=== PATIENT | female | born 1955 | race Caucasian/White ===

== ENCOUNTER → 2022-02-16 15:13 | Outpatient (CLI) | payer MEDICARE, OTHER, SELFPAY ==
--- NOTE | 2022-02-16 15:16 | DI.RAD.S_ITS ---
PROCEDURE: XR KNEE RT 3V INDICATIONS: bilateral knee and hip pain TECHNIQUE: 3 views of the knee were acquired. COMPARISON: None. FINDINGS: Bones: No fractures or dislocations. No suspicious bony lesions. Mild osteoarthritic degenerative changes noted in all 3 compartments of the right knee. Soft tissues: No joint effusion. No suspicious soft tissue calcifications. IMPRESSION: Mild right knee tricompartmental osteoarthritis. Dictated by: Queta Ram MD, PhD on 02/16/2022 at 17:20 Approved by: Queta Ram MD, PhD on 02/16/2022 at 17:20
--- NOTE | 2022-02-16 15:16 | DI.RAD.S_ITS ---
PROCEDURE: XR KNEE LT 3V INDICATIONS: bilateral knee and hip pain TECHNIQUE: 3 views of the left knee were acquired. COMPARISON: None. FINDINGS: Bones: No fractures or dislocations. No suspicious bony lesions. Mild osteoarthritic degenerative changes noted in all 3 compartments of the left knee. Soft tissues: No joint effusion. No suspicious soft tissue calcifications. IMPRESSION: Mild left knee tricompartmental osteoarthritis. Dictated by: Queta Ram MD, PhD on 02/16/2022 at 17:19 Approved by: Queta Ram MD, PhD on 02/16/2022 at 17:20
== END ==
PROVIDERS: PCP Family Medicine; Referring Provider Family Medicine; Visit Provider Family Medicine
DX: M17.0 Bilateral primary osteoarthritis of knee (principal); M25.561 Pain in right knee; M25.562 Pain in left knee; M25.551 Pain in right hip; M25.552 Pain in left hip; M54.40 Lumbago with sciatica, unspecified side; G89.29 Other chronic pain
CPT/HCPCS: 73562

== ENCOUNTER → 2022-02-23 10:08 | Outpatient (CLI) | payer MEDICARE, OTHER, SELFPAY ==
[2022-02-23 12:01] LABS: Alanine Aminotransferase 21 IU/L (<35); Albumin 4.4 g/dL (3.5-5.0); Albumin Globulin Ratio 1.4 (1.0-2.8); Alkaline Phosphatase 75 U/L (38-126); Aspartate Aminotransferase 34 IU/L (14-36); BUN Creatinine Ratio 16.9 (6-22); Bilirubin Total 0.8 mg/dL (0.2-1.3); Blood Urea Nitrogen 13 mg/dL (7-17); Calcium 9.1 mg/dL (8.4-10.2); Carbon Dioxide 28 mmol/L (22-32); Chloride 104 mmol/L (98-107); Estimated Glomerular Filt Rate > 60 mL/min (>60); Globulin 3.2 g/dL (1.7-4.1); Glucose 81 mg/dL (80-110); HEMOLYSIS < 15 (0-50); Potassium 4.4 mmol/L (3.4-5.1); Sodium 140 mmol/L (137-145); Total Protein 7.6 g/dL (6.3-8.2)
== END ==
PROVIDERS: PCP Family Medicine; Referring Provider Family Medicine; Visit Provider Family Medicine
DX: E03.9 Hypothyroidism, unspecified (principal); E55.9 Vitamin D deficiency, unspecified; F41.9 Anxiety disorder, unspecified; G89.29 Other chronic pain; M54.40 Lumbago with sciatica, unspecified side
CPT/HCPCS: 36415; 80053

== ENCOUNTER → 2022-02-25 12:11 | Outpatient (CLI) | payer MEDICARE, OTHER, SELFPAY ==
--- NOTE | 2022-02-25 12:15 | DI.CT.S_ITS ---
PROCEDURE: CT CHEST W CON INDICATIONS: tree-in-bud findings and chronic cough TECHNIQUE: After the administration of intravenous contrast, 5 mm thick sections acquired from the pulmonary apices to the posterior costophrenic angles. 1 mm axial lung, 5 mm thick coronal and sagittal reformats and 7 mm axial MIP were acquired. For radiation dose reduction, the following was used: automated exposure control, adjustment of mA and/or kV according to patient size. COMPARISON: None. FINDINGS: Image quality: Excellent. Lungs and pleura: Mild bronchiectasis and mild poorly defined opacity can be seen involving the inferior lingula and the right middle lobe. Minimal subpleural fibrotic change can be seen. Mediastinum: Heart size is normal. No pericardial effusion. No mediastinal or hilar adenopathy by size criteria. Thoracic aorta and central pulmonary arteries are normal in size. Esophagus is normal in caliber. No hiatal hernia. Bones and chest wall: No suspicious bony lesions. No vertebral body compression fractures. No axillary or supraclavicular adenopathy by size criteria. Thyroid gland demonstrates no significant abnormality. A left mammoplasty implant can be seen. A collapsed right mammoplasty implant can be seen. Abdomen: Simple appearing water density liver cysts are seen. There is thickening of the left adrenal gland, yet without a peggy, focal nodule. The visualized portions of the upper abdominal structures are otherwise unremarkable for imaging technique. IMPRESSION: Within the inferior lingula and within the right middle lobe, there is mild bronchiectasis seen, with mild associated poorly defined opacity. The findings are nonspecific, yet are most commonly seen in patients with chronic infection. Incidental note is made of: Left mammoplasty implant Collapsed right mammoplasty implant Simple appearing liver cysts Thickening of the left adrenal gland Dictated by: Mike Segovia M.D. on 02/25/2022 at 14:59 Approved by: Mike Segovia M.D. on 02/25/2022 at 15:02
== END ==
PROVIDERS: PCP Family Medicine; Referring Provider Family Medicine; Visit Provider Family Medicine
DX: J47.9 Bronchiectasis, uncomplicated (principal); J84.9 Interstitial pulmonary disease, unspecified; R05.3 Chronic cough; T85.41XA Breakdown (mechanical) of breast prosthesis and implant, initial encounter; K76.89 Other specified diseases of liver
CPT/HCPCS: 71260

== ENCOUNTER → 2022-02-27 11:06 | Outpatient (CLI) | payer MEDICARE, OTHER, SELFPAY ==
[2022-02-27 11:39] LABS: Add Manual Diff / Slide Review NO; Basophils Absolute Auto 100 /uL (0-100); Basophils Percent Auto 1.2 % (0-2); Eosinophils Absolute Auto 100 /uL (0-450); Eosinophils Percent Auto 1.3 % (2-4); Hematocrit 38.3 % (36-46); Hemoglobin 12.7 g/dL (12.0-16.0); Lymphocytes Absolute Auto 1100 /uL (1100-4500); Lymphocytes Percent Auto 23.5 % (25-40); Mean Corpuscular HGB Conc 33.2 % (30-36); Mean Corpuscular Hemoglobin 29.3 PG (26-34); Mean Corpuscular Volume 88.4 fL (80-100); Monocytes Absolute Auto 400 /uL (0-900); Neutrophils Absolute Auto 3100 /uL (1500-7000); Platelet Count 301 X10^3/uL (150-400); Red Blood Cell Count 4.34 X10^6/uL (4.0-5.2); Red Cell Distribution Width 15.5 % (11.6-14.8); White Blood Cell Count 4.7 X10^3/uL (4.5-11.0)
[2022-02-27 12:32] LABS: Vitamin D 25 Hydroxy (D3) 66.4 ng/mL (30.0-100.0)
[2022-02-27 12:33] LABS: Free T3, Triiodothyronine Free 3.24 pg/mL (2.77-5.27); Free T4, Direct Thyroxine 1.62 ng/dL (0.78-2.19)
[2022-02-27 12:47] LABS: TSH w/ Reflex to FT4 1.93 uIU/mL (0.47-4.68)
== END ==
PROVIDERS: PCP Family Medicine; Referring Provider Family Medicine; Visit Provider Family Medicine
DX: E03.9 Hypothyroidism, unspecified (principal); E55.9 Vitamin D deficiency, unspecified; F41.9 Anxiety disorder, unspecified; G89.29 Other chronic pain; M54.50 Low back pain, unspecified
CPT/HCPCS: 36415; 82306; 84439; 84443; 84481; 85025

== ENCOUNTER → 2022-05-05 07:21 | Outpatient (CLI) | payer MEDICARE, OTHER, SELFPAY ==
[2022-05-05 09:06] LABS: Cholesterol 276 mg/dL (140-199); HDL Cholesterol 76 mg/dL (40-60); LDL Cholesterol Calculated 188 mg/dL (<100); Triglycerides 60 mg/dL (35-150)
[2022-05-06 06:43] LABS: Alpha 1 Anti Trypsin 83 mg/dL (101-187)
== END ==
PROVIDERS: PCP Family Medicine; Referring Provider Family Medicine; Visit Provider Family Medicine
DX: E03.9 Hypothyroidism, unspecified (principal); E55.9 Vitamin D deficiency, unspecified; F41.9 Anxiety disorder, unspecified; G89.29 Other chronic pain; M54.40 Lumbago with sciatica, unspecified side; J47.9 Bronchiectasis, uncomplicated; M25.559 Pain in unspecified hip; M25.569 Pain in unspecified knee
CPT/HCPCS: 36415; 80061; 82103

== ENCOUNTER → 2022-05-13 09:09 | Outpatient (CLI) | payer MEDICARE, OTHER, SELFPAY ==
--- NOTE | 2022-05-13 09:11 | DI.RAD.S_ITS ---
PROCEDURE: XR LUMBAR SPINE 2-3V INDICATIONS: chronic low back with bilateral radiculopathy TECHNIQUE: 3 views of the lumbar spine were acquired. COMPARISON: None. FINDINGS: Bones: 5 [id number] vertebrae are present. Mild right convexity curvature of the thoracolumbar spine centered at L2-L3. 3 mm anterolisthesis L4 on L5. Lumbar disc heights are largely maintained. Facet degenerative changes present at L4-5 and L5-S1, likely also L3-L4. No vertebral body compression fractures. No suspicious bony lesions. Soft tissues: Overlying bowel gas pattern is normal. No suspicious soft tissue calcifications. IMPRESSION: Mild degenerative changes of the lumbar spine. Dictated by: Donis Maurice M.D. on 05/13/2022 at 16:21 Approved by: Donis Maurice M.D. on 05/13/2022 at 16:25
== END ==
PROVIDERS: PCP Family Medicine; Referring Provider Family Medicine; Visit Provider Family Medicine
DX: M54.50 Low back pain, unspecified (principal); G89.29 Other chronic pain; M54.16 Radiculopathy, lumbar region
CPT/HCPCS: 72100

== ENCOUNTER → 2022-05-19 12:01 | Outpatient (CLI) | payer MEDICARE, OTHER, SELFPAY ==
--- NOTE | 2022-05-19 12:02 | DI.MRI.S_ITS ---
PROCEDURE: MR LUMBAR SPINE WO CON INDICATIONS: chronic low back pain with bilateral radicular symptoms TECHNIQUE: Noncontrast sagittal T1 spin echo and T2 fast echo, sagittal STIR, and T2 fast spin echo through the lumbar spine. In cases with scoliosis, additional coronal T2 fast spin echo may be performed. COMPARISON: None. FINDINGS: Image quality: Excellent. Alignment and Curvature: There is normal bony alignment. Bone Marrow: Marrow is of normal overall signal. No acute vertebral body compression fractures. Spinal Cord: Conus medullaris terminates at the L1 level. Visualized cord demonstrates normal signal and size. Paraspinous Soft Tissues: No paravertebral masses. T12-L1: Normal appearance. L1-L2 and L2-3: Normal appearance. L3-4: Disc height is preserved. Circumferential disc bulge and hypertrophic facet joints results in mild central stenosis. No foraminal stenosis L4-5: Disc height is preserved. Circumferential disc bulge and hypertrophic facet joints results in mild to moderate central stenosis. Mild bilateral foraminal stenosis. L5-S1: Normal appearance. IMPRESSION: 1. Degenerative disc disease and arthropathy results in [id number] central stenosis at L4-5 Approved by: Napoleon Nice M.D. on 05/19/2022 at 13:59
== END ==
PROVIDERS: PCP Family Medicine; Referring Provider Family Medicine; Visit Provider Family Medicine
DX: M51.16 Intervertebral disc disorders with radiculopathy, lumbar region (principal); G89.29 Other chronic pain; M48.061 Spinal stenosis, lumbar region without neurogenic claudication
CPT/HCPCS: 72148

== ENCOUNTER → 2022-06-08 14:12 | Outpatient (CLI) | payer MEDICARE, OTHER, SELFPAY ==
--- NOTE | 2022-06-08 | DI.MG.S_ITS ---
BILATERAL DIGITAL SCREENING MAMMOGRAM 3D/2D WITH CAD WITH AUGMENTATION: 06/08/2022 CLINICAL: Patient presents for routine screening. S/P bilateral augmentation. Comparison is made to exam dated: 07/17/2018 mammogram - outside location. Both breasts are heterogeneously dense, which may obscure small masses (category c / 51-75% glandular tissue). Current study was also evaluated with a Computer Aided Detection (CAD) system. Right breast implant is present. Left breast implant is intact. No significant masses, calcifications, or other findings are seen in either breast. There has been no significant interval change. IMPRESSION: BENIGN There is no mammographic evidence of malignancy. A 1 year screening mammogram is recommended. Based on the Tyrer Cuzick model (a risk assessment model) the patient's lifetime risk is 10.0% and her 10 year risk is 5.3%. According to the ACR, ACS, and NCCN guidelines, an annual breast MRI exam along with mammogram is recommended if the patient's lifetime risk is 20% or greater. This exam was interpreted at Station ID: [id number]. NOTE: For mammograms, a report in lay terms will be sent to the patient. Approximately 15% of breast malignancies will not be visualized mammographically. In the management of a palpable breast mass, a negative mammogram must not discourage biopsy of a clinically suspicious lesion. Electronically Signed By: George tai/boni:06/08/2022 14:55:28 letter sent: Normal Exam ACR BI-RADS Category 2: Benign Finding(s) 3342F
== END ==
PROVIDERS: PCP Family Medicine; Referring Provider Family Medicine; Visit Provider Family Medicine
DX: Z12.31 Encounter for screening mammogram for malignant neoplasm of breast (principal); Z98.82 Breast implant status
CPT/HCPCS: 77063; 77067

== ENCOUNTER → 2022-12-09 13:06 | Outpatient (CLI) | payer MEDICARE, OTHER, SELFPAY ==
[2022-12-14 21:24] LABS: 18 kD IgG Band Absent (.); 23 kD IgG Band Absent (.); 28 kD IgG Band Absent (.); 30 kD IgG Band Absent (.); 39 kD IgG Band Absent (.); 41 kD IgG Bands Present (.); 45 kD IgG Band Absent (.); 58 kD IgG Band Present (.); 66 kD IgG Band Absent (.); IgG P93 AB Absent (.); IgM P23 AB Absent (.); IgM P39 AB Absent (.); IgM P41 AB Absent (.); Lyme IgG Line Blot Interpretat Negative (.); Lyme IgM Line Blot Interpretat Negative (.)
== END ==
PROVIDERS: PCP Family Medicine; Referring Provider Family Medicine; Visit Provider Family Medicine
DX: A69.20 Lyme disease, unspecified (principal); G62.9 Polyneuropathy, unspecified
CPT/HCPCS: 36415; 86617

== ENCOUNTER → 2023-09-09 13:15 | Outpatient (CLI) | payer MEDICARE, OTHER, SELFPAY ==
[2023-09-12 16:47] LABS: Fecal Immunochemical Test Negative (Negative)
== END ==
PROVIDERS: PCP Family Medicine; Referring Provider Family Medicine; Visit Provider Family Medicine
DX: Z12.11 Encounter for screening for malignant neoplasm of colon (principal)
CPT/HCPCS: 82274

== ENCOUNTER → 2023-11-15 06:56 | Outpatient (CLI) | payer MEDICARE, OTHER, SELFPAY ==
[2023-11-15 09:18] LABS: Alanine Aminotransferase 20 IU/L (<35); Albumin 3.8 g/dL (3.5-5.0); Albumin Globulin Ratio 1.2 (1.0-2.8); Alkaline Phosphatase 71 U/L (38-126); Aspartate Aminotransferase 27 IU/L (14-36); BUN Creatinine Ratio 18.7 (6-22); Bilirubin Total 0.9 mg/dL (0.2-1.3); Blood Urea Nitrogen 14 mg/dL (7-17); Calcium 9.2 mg/dL (8.4-10.2); Carbon Dioxide 30 mmol/L (22-32); Chloride 109 mmol/L (98-107); Cholesterol 247 mg/dL (140-199); Estimated Glomerular Filt Rate > 60 mL/min (>60); Globulin 3.1 g/dL (1.7-4.1); Glucose 86 mg/dL (80-110); HDL Cholesterol 80 mg/dL (40-60); HEMOLYSIS < 15 (0-50); LDL Cholesterol Calculated 151 mg/dL (<100); Potassium 4.4 mmol/L (3.4-5.1); Sodium 141 mmol/L (137-145); Total Protein 6.9 g/dL (6.3-8.2); Triglycerides 78 mg/dL (35-150)
[2023-11-16 08:10] LABS: Apolipoprotein B 108 mg/dL (<90)
== END ==
PROVIDERS: PCP Family Medicine; Referring Provider Family Medicine; Visit Provider Family Medicine
DX: E78.49 Other hyperlipidemia (principal); E03.9 Hypothyroidism, unspecified
CPT/HCPCS: 36415; 80053; 80061; 82172; 83695

== ENCOUNTER → 2023-11-22 09:46 | Outpatient (CLI) | payer MEDICARE, OTHER, SELFPAY ==
[2023-11-22 11:30] LABS: TSH w/ Reflex to FT4 < 0.02 uIU/mL (0.47-4.68)
[2023-11-22 12:08] LABS: Free T4, Direct Thyroxine 2.38 ng/dL (0.78-2.19)
== END ==
PROVIDERS: PCP Family Medicine; Referring Provider Family Medicine; Visit Provider Family Medicine
DX: E78.49 Other hyperlipidemia (principal); E03.9 Hypothyroidism, unspecified; E88.01 Alpha-1-antitrypsin deficiency; Z12.11 Encounter for screening for malignant neoplasm of colon
CPT/HCPCS: 36415; 84439; 84443

== ENCOUNTER → 2023-12-24 08:56 | Outpatient (CLI) | payer MEDICARE, OTHER, SELFPAY ==
[2023-12-24 09:50] LABS: Add Manual Diff / Slide Review NO; Basophils Absolute Auto 100 /uL (0-100); Eosinophils Absolute Auto 100 /uL (0-450); Eosinophils Percent Auto 1.5 % (2-4); Hematocrit 39.4 % (36-46); Lymphocytes Absolute Auto 900 /uL (1100-4500); Lymphocytes Percent Auto 17.6 % (25-40); Mean Corpuscular HGB Conc 32.9 % (30-36); Mean Corpuscular Hemoglobin 28.4 PG (26-34); Mean Corpuscular Volume 86.5 fL (80-100); Monocytes Absolute Auto 400 /uL (0-900); Neutrophils Absolute Auto 3700 /uL (1500-7000); Neutrophils Percent Auto 71.9 % (50-75); Platelet Count 283 X10^3/uL (150-400); Red Blood Cell Count 4.56 X10^6/uL (4.0-5.2); Red Cell Distribution Width 14.7 % (11.6-14.8); White Blood Cell Count 5.2 X10^3/uL (4.5-11.0)
[2023-12-24 10:07] LABS: Erythrocyte Sedimentation Rate 18 MM/HR (0-20)
[2023-12-24 10:22] LABS: Alanine Aminotransferase 26 IU/L (<35); Albumin 4.1 g/dL (3.5-5.0); Albumin Globulin Ratio 1.5 (1.0-2.8); Alkaline Phosphatase 74 U/L (38-126); Aspartate Aminotransferase 32 IU/L (14-36); BUN Creatinine Ratio 20.3 (6-22); Blood Urea Nitrogen 16 mg/dL (7-17); C-Reactive Protein Quant < 0.5 mg/dL (<1.0); Calcium 9.5 mg/dL (8.4-10.2); Carbon Dioxide 28 mmol/L (22-32); Chloride 107 mmol/L (98-107); Estimated Glomerular Filt Rate > 60 mL/min (>60); Globulin 2.8 g/dL (1.7-4.1); Glucose 86 mg/dL (80-110); HEMOLYSIS < 15 (0-50); Potassium 4.6 mmol/L (3.4-5.1); Sodium 139 mmol/L (137-145); Total Protein 6.9 g/dL (6.3-8.2)
[2023-12-24 10:30] LABS: Free T3, Triiodothyronine Free 4.92 pg/mL (2.77-5.27); Free T4, Direct Thyroxine 1.85 ng/dL (0.78-2.19)
[2023-12-27 19:07] LABS: CCP Antibodies IgG/IgA 0 units (0-19)
== END ==
PROVIDERS: PCP Family Medicine; Referring Provider Family Medicine; Visit Provider Family Medicine
DX: E03.9 Hypothyroidism, unspecified (principal); R53.83 Other fatigue; M25.50 Pain in unspecified joint
CPT/HCPCS: 36415; 80053; 84439; 84443; 84481; 85025; 85651; 86140; 86200

== ENCOUNTER → 2024-02-08 06:56 | Outpatient (CLI) | payer MEDICARE, OTHER, SELFPAY ==
[2024-02-08 08:20] LABS: Add Manual Diff / Slide Review NO; Basophils Absolute Auto 0 /uL (0-100); Basophils Percent Auto 0.9 % (0-2); Eosinophils Absolute Auto 100 /uL (0-450); Eosinophils Percent Auto 1.3 % (2-4); Hematocrit 38.9 % (36-46); Hemoglobin 13.1 g/dL (12.0-16.0); Lymphocytes Absolute Auto 800 /uL (1100-4500); Lymphocytes Percent Auto 14.7 % (25-40); Mean Corpuscular HGB Conc 33.6 % (30-36); Mean Corpuscular Volume 86.3 fL (80-100); Monocytes Absolute Auto 400 /uL (0-900); Monocytes Percent Auto 7.9 % (3-14); Neutrophils Absolute Auto 4100 /uL (1500-7000); Neutrophils Percent Auto 75.2 % (50-75); Platelet Count 265 X10^3/uL (150-400); Red Blood Cell Count 4.51 X10^6/uL (4.0-5.2); Red Cell Distribution Width 14.6 % (11.6-14.8); White Blood Cell Count 5.5 X10^3/uL (4.5-11.0)
[2024-02-08 08:57] LABS: Free T3, Triiodothyronine Free 4.15 pg/mL (2.77-5.27)
[2024-02-08 08:58] LABS: Alanine Aminotransferase 37 IU/L (<35); Albumin 4.2 g/dL (3.5-5.0); Albumin Globulin Ratio 1.4 (1.0-2.8); Alkaline Phosphatase 73 U/L (38-126); Aspartate Aminotransferase 56 IU/L (14-36); BUN Creatinine Ratio 27.9 (6-22); Bilirubin Total 1.3 mg/dL (0.2-1.3); Blood Urea Nitrogen 17 mg/dL (7-17); C-Reactive Protein Quant < 0.5 mg/dL (<1.0); Calcium 9.1 mg/dL (8.4-10.2); Carbon Dioxide 27 mmol/L (22-32); Chloride 108 mmol/L (98-107); Cholesterol 168 mg/dL (140-199); Estimated Glomerular Filt Rate > 60 mL/min (>60); Globulin 2.9 g/dL (1.7-4.1); Glucose 91 mg/dL (80-110); HDL Cholesterol 100 mg/dL (40-60); LDL Cholesterol Calculated 55 mg/dL (<100); Sodium 138 mmol/L (137-145); Total Protein 7.1 g/dL (6.3-8.2); Triglycerides 64 mg/dL (35-150)
[2024-02-08 09:01] LABS: HEMOLYSIS 102 (0-50)
[2024-02-08 09:07] LABS: Erythrocyte Sedimentation Rate 20 MM/HR (0-20)
[2024-02-08 09:11] LABS: TSH w/ Reflex to FT4 0.13 uIU/mL (0.47-4.68)
[2024-02-08 09:33] LABS: Vitamin B12 Reflex MMA if <400 748 pg/mL (239-931)
[2024-02-08 09:36] LABS: Free T4, Direct Thyroxine 1.76 ng/dL (0.78-2.19)
[2024-02-09 06:08] LABS: Apolipoprotein B 63 mg/dL (<90)
== END ==
PROVIDERS: PCP Family Medicine; Referring Provider Family Medicine; Visit Provider Family Medicine
DX: E78.49 Other hyperlipidemia (principal); E03.9 Hypothyroidism, unspecified; E88.01 Alpha-1-antitrypsin deficiency; Z12.11 Encounter for screening for malignant neoplasm of colon; R53.83 Other fatigue; M25.50 Pain in unspecified joint
CPT/HCPCS: 36415; 80053; 80061; 82172; 82607; 84439; 84443; 84481; 85025; 85651; 86140

== ENCOUNTER → 2024-05-02 07:16 | Outpatient (CLI) | payer MEDICARE, OTHER, SELFPAY ==
[2024-05-02 08:41] LABS: Alanine Aminotransferase 26 IU/L (<35); Albumin Globulin Ratio 1.4 (1.0-2.8); Alkaline Phosphatase 87 U/L (38-126); Aspartate Aminotransferase 31 IU/L (14-36); BUN Creatinine Ratio 24.7 (6-22); Blood Urea Nitrogen 19 mg/dL (7-17); Calcium 9.5 mg/dL (8.4-10.2); Carbon Dioxide 27 mmol/L (22-32); Chloride 107 mmol/L (98-107); Cholesterol 251 mg/dL (140-199); Estimated Glomerular Filt Rate > 60 mL/min (>60); Globulin 2.8 g/dL (1.7-4.1); Glucose 96 mg/dL (80-110); HDL Cholesterol 91 mg/dL (40-60); HEMOLYSIS < 15 (0-50); LDL Cholesterol Calculated 144 mg/dL (<100); Potassium 4.7 mmol/L (3.4-5.1); Sodium 140 mmol/L (137-145); Total Protein 6.8 g/dL (6.3-8.2); Triglycerides 79 mg/dL (35-150)
[2024-05-02 08:52] LABS: Free T3, Triiodothyronine Free 2.77 pg/mL (2.77-5.27); Free T4, Direct Thyroxine 1.41 ng/dL (0.78-2.19)
[2024-05-02 09:05] LABS: Thyroid Stimulating Hormone 0.219 uIU/mL (0.47-4.68)
[2024-05-03 05:30] LABS: Apolipoprotein B 114 mg/dL (<90)
== END ==
PROVIDERS: PCP Family Medicine; Referring Provider Family Medicine; Visit Provider Family Medicine
DX: E78.49 Other hyperlipidemia (principal); E03.9 Hypothyroidism, unspecified; F41.9 Anxiety disorder, unspecified
CPT/HCPCS: 36415; 80053; 80061; 82172; 84439; 84443; 84481

== ENCOUNTER → 2024-07-06 08:10 | Outpatient (CLI) | payer MEDICARE, OTHER, SELFPAY ==
--- NOTE | 2024-07-06 | DI.MG.S_ITS ---
BILATERAL DIGITAL SCREENING MAMMOGRAM 3D/2D WITH CAD WITH AUGMENTATION: 07/06/2024 CLINICAL: Routine screening. Comparison is made to exams dated: 06/08/2022 mammogram - [facility] and 07/17/2018 mammogram - outside location. The breasts are heterogeneously dense, which may obscure small masses (category c / 51-75% glandular tissue). Current study was also evaluated with a Computer Aided Detection (CAD) system. Right breast implant is present. Left breast implant is intact. No significant masses, calcifications, or other findings are seen in either breast. There has been no significant interval change. IMPRESSION: NEGATIVE There is no mammographic evidence of malignancy. A 1 year screening mammogram is recommended. Based on the Tyrer Cuzick model (a risk assessment model) the patient's lifetime risk is 9.0% and her 10 year risk is 5.3%. According to the ACR, ACS, and NCCN guidelines, an annual breast MRI exam along with mammogram is recommended if the patient's lifetime risk is 20% or greater. This exam was interpreted at Station ID: [id number]. NOTE: For mammograms, a report in lay terms will be sent to the patient. Approximately 15% of breast malignancies will not be visualized mammographically. In the management of a palpable breast mass, a negative mammogram must not discourage biopsy of a clinically suspicious lesion. Electronically Signed By: Jose harris/boni:07/09/2024 07:15:28 letter sent: Normal Exam ACR BI-RADS Category 1: Negative
== END ==
PROVIDERS: PCP Family Medicine; Referring Provider Family Medicine; Visit Provider Family Medicine
DX: Z12.31 Encounter for screening mammogram for malignant neoplasm of breast (principal); R92.333 Mammographic heterogeneous density, bilateral breasts
CPT/HCPCS: 77063; 77067

== ENCOUNTER → 2024-08-14 06:59 | Outpatient (CLI) | payer MEDICARE, OTHER, SELFPAY ==
[2024-08-14 08:13] LABS: Alanine Aminotransferase 30 IU/L (<35); Albumin 4.1 g/dL (3.5-5.0); Albumin Globulin Ratio 1.4 (1.0-2.8); Alkaline Phosphatase 74 U/L (38-126); Aspartate Aminotransferase 38 IU/L (14-36); BUN Creatinine Ratio 23.9 (6-22); Bilirubin Total 0.9 mg/dL (0.2-1.3); Blood Urea Nitrogen 17 mg/dL (7-17); Calcium 9.6 mg/dL (8.4-10.2); Carbon Dioxide 26 mmol/L (22-32); Chloride 106 mmol/L (98-107); Cholesterol 190 mg/dL (140-199); Estimated Glomerular Filt Rate > 60 mL/min (>60); Globulin 2.9 g/dL (1.7-4.1); Glucose 94 mg/dL (80-110); HDL Cholesterol 96 mg/dL (40-60); LDL Cholesterol Calculated 79 mg/dL (<100); Sodium 138 mmol/L (137-145); Triglycerides 76 mg/dL (35-150)
[2024-08-14 08:16] LABS: HEMOLYSIS 25 (0-50)
[2024-08-14 08:32] LABS: Free T3, Triiodothyronine Free 3.77 pg/mL (2.77-5.27); Free T4, Direct Thyroxine 1.71 ng/dL (0.78-2.19)
[2024-08-14 08:46] LABS: Thyroid Stimulating Hormone 0.052 uIU/mL (0.47-4.68)
[2024-08-15 03:36] LABS: Apolipoprotein B 75 mg/dL (<90)
== END ==
PROVIDERS: PCP Family Medicine; Referring Provider Family Medicine; Visit Provider Family Medicine
DX: E78.49 Other hyperlipidemia (principal); E03.9 Hypothyroidism, unspecified
CPT/HCPCS: 36415; 80053; 80061; 82172; 84439; 84443; 84481

== ENCOUNTER 2025-02-25 12:26 | Emergency (ER) | payer MEDICARE, OTHER, SELFPAY ==
[2025-02-25] VITALS (15 sets, daily range): BP systolic 127–162; BP diastolic 60–71; PULSE 51–78; RESP 11–31; TEMP 36.9–37.1; O2SAT 94–99
--- NOTE | 2025-02-25 12:42 | EKG_ITS ---
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
--- NOTE | 2025-02-25 13:12 | DI.RAD.S_ITS ---
PROCEDURE: XR CHEST 1V INDICATIONS: Chest Pain TECHNIQUE: One view of the chest was acquired. COMPARISON: None. FINDINGS: Surgical changes and devices: None. Lungs and pleura: Lungs are clear. No pleural effusions or pneumothorax. Mediastinum: Mediastinal contours appear normal. Heart size is normal. Bones and chest wall: No suspicious bony lesions. Overlying soft tissues appear unremarkable. IMPRESSION: No acute cardiopulmonary abnormality is seen. Dictated by: Jens Roa M.D. on 02/25/2025 at 13:54 Approved by: Jens Roa M.D. on 02/25/2025 at 13:54
--- NOTE | 2025-02-25 13:13 | DI.US.S_ITS ---
US breast LT limited: 02/25/2025. BI-RADS: 0 CLINICAL: 70-year old female for left diagnostic breast ultrasound. Tyrer- Cuzick lifetime risk of 3.7%. PRIOR EXAMS 07/06/2024, 06/08/2022. ULTRASOUND TECHNIQUE Real-time ling scale imaging of the area of clinical interest was performed with image documentation. ULTRASOUND FINDINGS Left: Upper Outer at 2:00, 11 cm from nipple: There is no sonographic correlate or abnormality seen at the area of patient/clinician directed pain. Left: No sonographic abnormalities identified around patient's saline breast implant which appears to maintain a normal shape. No abnormal jose-implant fluid collection either intracapsular or extracapsular. No suspicious sonographic finding with typically benign findings noted. IMPRESSION: Left: Upper Outer at 2:00, 11 cm from nipple * Incomplete - Needs additional imaging evaluation. RECOMMENDATIONS Left: Upper Outer at 2:00, 11 cm from nipple * Further evaluation with diagnostic mammography. COMMENTS: The patient will also be due for screening mammogram of the contralateral breast at that time. Findings and recommendations were conveyed to the patient during today's evaluation. Findings and recommendations were also discussed telephonically with Dr. Ortiz of the emergency department. OVERALL ASSESSMENT CATEGORY BI-RADS-0: Incomplete - Need Additional Imaging Evaluation. PRELIMINARILY ELECTRONICALLY SIGNED: Jose Dejesus M.D. on 02/25/2025 at 04:11:06 PM PT ELECTRONICALLY SIGNED: Jose Dejesus M.D. on 02/25/2025 at 05:00:25 PM PT Interpreting Station ID: [id number]
[2025-02-25] MEDS: ASPIRIN 81 MG CHEW TAB 324 MG PO (13:17)
[2025-02-25 13:30] LABS: Add Manual Diff / Slide Review NO; Basophils Absolute Auto 100 /uL (0-100); Basophils Percent Auto 1.1 % (0-2); Eosinophils Absolute Auto 100 /uL (0-450); Eosinophils Percent Auto 1.2 % (2-4); Hematocrit 40.1 % (36-46); Hemoglobin 13.3 g/dL (12.0-16.0); Lymphocytes Absolute Auto 1200 /uL (1100-4500); Lymphocytes Percent Auto 19.5 % (25-40); Mean Corpuscular HGB Conc 33.1 % (30-36); Mean Corpuscular Volume 87.8 fL (80-100); Monocytes Absolute Auto 700 /uL (0-900); Monocytes Percent Auto 10.8 % (3-14); Neutrophils Absolute Auto 4100 /uL (1500-7000); Neutrophils Percent Auto 67.4 % (50-75); Platelet Count 285 X10^3/uL (150-400); Red Blood Cell Count 4.57 X10^6/uL (4.0-5.2); Red Cell Distribution Width 14.9 % (11.6-14.8); White Blood Cell Count 6.1 X10^3/uL (4.5-11.0)
[2025-02-25 13:37] LABS: Prothrombin Time 10.8 SECONDS (9.4-12.5)
[2025-02-25 13:39] LABS: PTT Partial Thromboplastin Tim 36 SECONDS (25.1-36.5)
[2025-02-25 13:46] LABS: Alanine Aminotransferase 19 IU/L (<35); Albumin 4.2 g/dL (3.5-5.0); Albumin Globulin Ratio 1.2 (1.0-2.8); Alkaline Phosphatase 83 U/L (38-126); Aspartate Aminotransferase 29 IU/L (14-36); BUN Creatinine Ratio 23.9 (6-22); Bilirubin Total 0.7 mg/dL (0.2-1.3); Blood Urea Nitrogen 17 mg/dL (7-17); Calcium 9.5 mg/dL (8.4-10.2); Carbon Dioxide 24 mmol/L (22-32); Chloride 107 mmol/L (98-107); Creatine Kinase 84 U/L (30-135); Estimated Glomerular Filt Rate > 60 mL/min (>60); Globulin 3.5 g/dL (1.7-4.1); Glucose 102 mg/dL (70-99); HEMOLYSIS < 15 (0-50); Lipase 126 U/L (23-300); Potassium 4.4 mmol/L (3.4-5.1); Sodium 138 mmol/L (137-145); Total Protein 7.7 g/dL (6.3-8.2)
[2025-02-25 13:57] LABS: NT-proBNP (BNP-Adult 18+) 64 pg/mL (<125); Troponin I < 0.012 ng/mL (0.01-0.034)
--- NOTE | 2025-02-25 17:03 | PC.NURSE ---
Addendum entered by Daniel Rosas R.N. 02/25/25 17:49: Patient reports implants were placed in 1997. Original Note: Patient reports LEFT breast pain on the lateral outer aspect that radiates down and around toward front of breast. Worse when she lays down on it at night. Reports hearing some gurgling in her stomach loudly and feeling an odd sensation when she took her bra off on the second night. Reports some swelling of the LEFT breast on that night as well.
--- NOTE | 2025-02-25 20:42 | ED_ITS ---
HPI - Chest Pain General Chief Complaint: Chest Pain Stated Complaint: Sent from [facility] left breast pain Time Seen by Provider: 02/25/25 14:46 Source: patient Mode of arrival: Ambulatory Limitations: no limitations Related Data Previous Rx's ?Medication ?Instructions ?Recorded ezetimibe 10 mg tablet (Zetia) 10 mg PO DAILY #90 tabs 05/25/24 rosuvastatin 5 mg tablet 5 mg PO DAILY #90 tabs 05/25 levothyroxine 112 mcg tablet 112 mcg PO DAILY #90 tabs 08/20/24 liothyronine 5 mcg tablet 5 mcg PO DAILY #90 tabs 08/05 02/26 Allergies Allergy/AdvReac Type Severity Reaction Status Date / Time morphine AdvReac Mild Patient Verified 02/25/25 12:37 does not want this prescribed. Patient History Medical History (Updated 09/06/23 @ 09:04 by Rodney Espinal MD) Familial hyperlipidemia, high LDL Cloudy vision Borrelia infection Bilateral leg pain Polyneuropathy Plantar warts Chronic cough Allergies Anxiety Knee pain (~2017) Hip pain (~2017) Chronic back pain Lyme disease (~2008) Tinnitus (~2019) Cataracts, bilateral (~2012) Ovarian cyst Abnormal Pap smear of cervix (~1974) Hemorrhoid Hypothyroidism (~1999) Surgical History (Updated 06/17/21 @ 22:46 by Paige Smith) Anesthesia Dermoid cyst (~2002) History of removal of cyst (~1996) History of tonsillectomy and adenoidectomy (~1961) History of appendectomy (~2001) Family History (Updated 06/17/21 @ 22:49 by Paige Smith) Father Cancer Congestive heart failure Mother Alzheimer's disease Grandfather No problems noted. Grandmother Stroke Grandmother History of heart disease Exam Narrative Exam Narrative: GENERAL: Well-developed patient, in mild distress. HEAD: Atraumatic. Normocephalic. EYES: Pupils equal round and reactive. Extraocular motions intact. No scleral icterus. No injection or drainage. ENT: Nose without bleeding, purulent drainage. Throat without erythema, tonsillar hypertrophy or exudate. Airway patent. NECK: Trachea midline. Non tender CARDIOVASCULAR: Regular rate and rhythm without murmurs, gallops, or rubs. RESPIRATORY: Clear to auscultation. Breath sounds equal bilaterally. No wheezes, rales, or rhonchi. GASTROINTESTINAL: Abdomen soft, non-tender, nondistended. EXTREMITIES: No edema or joint tenderness. BACK: Nontender without deformity or crepitance. No flank tenderness. NEURO: AOx3. Motor functions grossly nonfocal. SKIN: No rash or erythema of visible areas Initial Vital Signs Initial Vital Signs: Vital Signs Temperature 98.4 F 02/25/25 12:36 Pulse Rate 75 02/25/25 12:36 Respiratory Rate 18 02/25/25 12:36 Blood Pressure 131/60 02/25/25 12:36 Pulse Oximetry 98 02/25/25 12:36 Oxygen Delivery Method Room Air 02/25/25 12:36 Course Orders Ordered: ED Orders 02/25/25 12:42 EKG-12 Lead Stat 02/25/25 13:12 XR chest 1V Stat 02/25/25 13:13 US breast LT limited Stat 02/25/25 13:20 Complete Blood Count AUTO DIFF Stat Comprehensive Metabolic Panel Stat Lipase Stat Magnesium Stat NT-proBNP (BNP-Adult 18+) Stat PTT Partial Thromboplastin Case Stat Prothrombin Time INR Stat Troponin & CK Cardiac Panel Stat 02/25/25 20:44 Troponin I Stat Discontinued Medications Aspirin (Aspirin 81 Mg Chew Tab) 324 mg PO NOW ONE Stop: 02/25/25 13:13 Last Admin: 02/25/25 13:17 Dose: 324 mg Documented By: SHA Vital Signs Vital signs: Vital Signs - 8 hr 02/25/25 15:33 02/25/25 17:00 02/25/25 17:12 Temperature 98.7 F Pulse Rate 60 78 Respiratory Rate 16 Blood Pressure 137/64 147/68 H Pulse Oximetry 98 Oxygen Delivery Method Room Air 02/25/25 17:14 02/25/25 17:14 02/25/25 17:30 Temperature Pulse Rate 55 L 52 L Respiratory Rate 16 14 Blood Pressure 141/65 H Pulse Oximetry 98 97 Oxygen Delivery Method 02/25/25 17:31 02/25/25 17:31 02/25/25 18:00 Temperature Pulse Rate 51 L 59 L Respiratory Rate 14 18 Blood Pressure 127/63 Pulse Oximetry 98 98 Oxygen Delivery Method Room Air 02/25/25 18:00 02/25/25 18:30 02/25/25 18:30 Temperature Pulse Rate 55 L Respiratory Rate 14 Blood Pressure 135/63 144/65 H Pulse Oximetry 98 Oxygen Delivery Method Room Air 02/25/25 19:18 02/25/25 19:19 02/25/25 19:19 Temperature Pulse Rate 62 57 L Respiratory Rate 11 L Blood Pressure 162/71 H Pulse Oximetry 94 Oxygen Delivery Method 02/25/25 19:30 02/25/25 19:30 02/25/25 20:00 Temperature Pulse Rate 55 L 55 L Respiratory Rate 23 19 Blood Pressure 138/64 Pulse Oximetry 97 98 Oxygen Delivery Method 02/25/25 20:00 02/25/25 20:30 02/25/25 20:31 Temperature Pulse Rate 55 L 64 Respiratory Rate 22 31 H Blood Pressure 145/63 H Pulse Oximetry 98 99 Oxygen Delivery Method 02/25/25 20:31 Temperature Pulse Rate Respiratory Rate Blood Pressure 152/70 H Pulse Oximetry Oxygen Delivery Method MDM - Chest Pain Lab Data Attestation: I reviewed the patient's lab results. Lab results narrative: White blood cell count 6100, hemoglobin 13.3, platelets adequate. Glucose 102. Normal renal function, electrolytes, carbon dioxide. Liver functions normal. Lipase normal. Troponin negative/unmeasurable. BNP 64 not elevated. 02/25/25 13:20 02/25/25 13:20 Labs: Lab Results 02/25/25 Range/Units 13:20 WBC 6.1 (4.5-11.0) X10^3/uL RBC 4.57 (4.0-5.2) X10^6/uL Hgb 13.3 (12.0-16.0) g/dL Hct 40.1 (36-46) % MCV 87.8 (80-100) fL MCH 29.0 (26-34) PG MCHC 33.1 (30-36) % RDW 14.9 H (11.6-14.8) % Plt Count 285 (150-400) X10^3/uL Neut % (Auto) 67.4 (50-75) % Lymph % (Auto) 19.5 L (25-40) % [place] % (Auto) 10.8 (3-14) % Eos % (Auto) 1.2 L (2-4) % Baso % (Auto) 1.1 (0-2) % Neut # (Auto) 4100 (4770-2123) /uL Lymph # (Auto) 1200 (1293-0474) /uL [place] # (Auto) 700 (0-900) /uL Eos # (Auto) 100 (0-450) /uL Baso # (Auto) 100 (0-100) /uL PT 10.8 (9.4-12.5) SECONDS INR 1.0 (0.9-1.3) APTT 36 (25.1-36.5) SECONDS Sodium 138 (137-145) mmol/L Potassium 4.4 (3.4-5.1) mmol/L Chloride 107 (98-107) mmol/L Carbon Dioxide 24 (22-32) mmol/L BUN 17 (7-17) mg/dL Creatinine 0.71 (0.52-1.04) mg/dL Estimated GFR > 60 (>60) mL/min BUN/Creatinine Ratio 23.9 H (6-22) Glucose 102 H (70-99) mg/dL Calcium 9.5 (8.4-10.2) mg/dL Magnesium 2.0 (1.6-2.3) mg/dL Total Bilirubin 0.7 (0.2-1.3) mg/dL AST 29 (14-36) IU/L ALT 19 (<35) IU/L Alkaline Phosphatase 83 (38-126) U/L Total Creatine Kinase 84 (30-135) U/L Troponin I < 0.012 (0.01-0.034) ng/mL NT-Pro-B Natriuret Pep 64 (<125) pg/mL Total Protein 7.7 (6.3-8.2) g/dL Albumin 4.2 (3.5-5.0) g/dL Globulin 3.5 (1.7-4.1) g/dL Albumin/Globulin Ratio 1.2 (1.0-2.8) Lipase 126 (23-300) U/L Imaging Data Breast ultrasound: Radiologist's Impression: [address] [address] Ultrasound Report Signed Patient: Michelle Chaudhary MR#: [id number] : 1955 Acct:[id number] Age/Sex: 70 / F Date of Service: 02/25/25 Loc: ED Accession Number: [id number] Procedure: US breast LT limited Ordering Provider: Morelia Ortiz D.O. US breast LT limited: 02/25/2025. BI-RADS: 0 CLINICAL: 70-year old female for left diagnostic breast ultrasound. Tyrer- Cuzick lifetime risk of 3.7%. PRIOR EXAMS 07/06/2024, 06/08/2022. ULTRASOUND TECHNIQUE Real-time ling scale imaging of the area of clinical interest was performed with image documentation. ULTRASOUND FINDINGS Left: Upper Outer at 2:00, 11 cm from nipple: There is no sonographic correlate or abnormality seen at the area of patient/clinician directed pain. Left: No sonographic abnormalities identified around patient's saline breast implant which appears to maintain a normal shape. No abnormal jose-implant fluid collection either intracapsular or extracapsular. No suspicious sonographic finding with typically benign findings noted. IMPRESSION: Left: Upper Outer at 2:00, 11 cm from nipple * Incomplete - Needs additional imaging evaluation. RECOMMENDATIONS Left: Upper Outer at 2:00, 11 cm from nipple * Further evaluation with diagnostic mammography. COMMENTS: The patient will also be due for screening mammogram of the contralateral breast at that time. Findings and recommendations were conveyed to the patient during today's evaluation. Findings and recommendations were also discussed telephonically with Dr. Ortiz of the emergency department. OVERALL ASSESSMENT CATEGORY BI-RADS-0: Incomplete - Need Additional Imaging Evaluation. PRELIMINARILY ELECTRONICALLY SIGNED: Jose Dejesus M.D. on 02/25/2025 at 04:11:06 PM PT ELECTRONICALLY SIGNED: Jose Dejesus M.D. on 02/25/2025 at 05:00:25 PM PT Interpreting Station ID: [id number] Chest x-ray: Radiologist's Impression: [address] [address] XRay Report Signed Patient: Michelle Chaudhary MR#: [id number] : 1955 Acct:[id number] Age/Sex: 70 / F Date of Service: 02/25/25 Loc: ED Accession Number: [id number] Procedure: XR chest 1V Ordering Provider: Morelia Ortiz D.O. PROCEDURE: XR CHEST 1V INDICATIONS: Chest Pain TECHNIQUE: One view of the chest was acquired. COMPARISON: None. FINDINGS: Surgical changes and devices: None. Lungs and pleura: Lungs are clear. No pleural effusions or pneumothorax. Mediastinum: Mediastinal contours appear normal. Heart size is normal. Bones and chest wall: No suspicious bony lesions. Overlying soft tissues appear unremarkable. IMPRESSION: No acute cardiopulmonary abnormality is seen. Dictated by: Jens Roa M.D. on 02/25/2025 at 13:54 Approved by: Jens Roa M.D. on 02/25/2025 at 13:54 ECG Data Interpretation: 1251, normal sinus rhythm, rate 69. Incomplete right bundle branch block noted. OR 146, QRS 100, QTC 430. [facility] Narrative Medical decision making narrative: 70-year-old with chest discomfort. EKG without obvious ischemic changes. Troponin negative. We will repeat interval troponin. Chest x-ray no acute changes, see radiology report. Discharge Plan Departure Prescriptions: No Action liothyronine 5 mcg tablet 5 mcg PO DAILY Qty: 90 3RF levothyroxine 112 mcg tablet 112 mcg PO DAILY Qty: 90 3RF rosuvastatin 5 mg tablet 5 mg PO DAILY Qty: 90 3RF ezetimibe [Zetia] 10 mg tablet 10 mg PO DAILY Qty: 90 3RF Referrals: Rodney Espinal MD [Primary Care Provider, Family Practice]
== END 2025-02-25 20:45 | disposition left against medical advice (07) ==
PROVIDERS: Emergency Medicine; Emergency Provider Emergency Medicine; PCP Family Medicine
DX: N64.4 Mastodynia (principal); R07.9 Chest pain, unspecified; Z98.82 Breast implant status
CPT/HCPCS: 36415; 71045; 76642; 80053; 82550; 83690; 83735; 83880; 84484; 85025; 85610; 85730; 93005; 93010; 99284